=== PATIENT | male | born 1980 ===

== ENCOUNTER 2023-08-07 06:41 | Outpatient (RCR) | payer OTHER, SELFPAY | END 2023-08-07 23:59 | disposition home or self-care (01) | LOC: RPT 06:41 | PROVIDERS: ATTENDING PHYSICIAN General Practice | DX: M62.81 Muscle weakness (generalized) (principal); Z73.6 Limitation of activities due to disability; R26.2 Difficulty in walking, not elsewhere classified; R20.2 Paresthesia of skin; R26.89 Other abnormalities of gait and mobility; W34.00XD Accidental discharge from unspecified firearms or gun, subsequent encounter | CPT/HCPCS: 97110; 97116; 97162 ==

== ENCOUNTER 2023-09-04 08:23 | Outpatient (RCR) | payer OTHER, SELFPAY | END 2023-09-04 23:59 | disposition home or self-care (01) | LOC: RPT 08:23 | PROVIDERS: ATTENDING PHYSICIAN General Practice | DX: M79.661 Pain in right lower leg (principal); W34.00XD Accidental discharge from unspecified firearms or gun, subsequent encounter | CPT/HCPCS: 97110; 97112 ==